=== PATIENT | male | born 1960 | race Caucasian/White ===

== ENCOUNTER 2023-12-16 08:00 | Outpatient (CLI) | payer OTHER ==
[~2023-12-16] VITALS: Ht 177.8 cm; Wt 86.2 kg
[2024-01-11 07:01] VITALS: PULSE 75; RESP 18; TEMP 98.2; O2SAT 98
[2024-01-11 08:27] VITALS: BP_SYST 121
== END 2023-12-16 15:30 | disposition home or self-care (01) ==
LOC: SLB 08:00 → EDSTATUS 01-11 07:30
PROVIDERS: ATTEND Colon & Rectal Surgery
DX: K42.0 Umbilical hernia with obstruction, without gangrene (principal)
CPT/HCPCS: 87081

== ENCOUNTER 2024-01-11 05:55 | Day surgery (SDC) | payer OTHER ==
[~2024-01-11] VITALS: Ht 177.8 cm; Wt 95.7 kg
[2024-01-11] MEDS ORDERED: CEFAZOLIN SOD 2 GM in D5W 50 ML IV ONE (07:00)
[2024-01-11] MEDS ORDERED: MIDAZOLAM HCL 2 MG/2 ML VIAL (VERSED) ONE (07:25)
[2024-01-11] MEDS ORDERED: NS IRRIG SOLN 1000 ML IR ONE (07:25)
[2024-01-11] MEDS ORDERED: LR 1,000 ML IV.SOLN IV ONE (07:25)
[2024-01-11] MEDS ORDERED: DESFLURANE 15 MIN GAS INH ONE (07:25)
[2024-01-11] MEDS ORDERED: ceFAZolin SODIUM 1 GM VIAL ONE (07:25)
[2024-01-11] MEDS ORDERED: METOCLOPRAMIDE HCL 10 MG/2 ML VIAL ONE (07:25)
[2024-01-11] MEDS ORDERED: fentaNYL CITRATE/PF 100 MCG/2 ML AMP ONE (07:25)
[2024-01-11] MEDS ORDERED: ONDANSETRON HCL 4 MG/2 ML VIAL ONE (07:25)
[2024-01-11] MEDS ORDERED: ROCURONIUM BROMIDE 10 MG/ML (ZEMURON) ONE (07:25)
[2024-01-11] MEDS ORDERED: LR 500 ML IV.SOLN IV ONE (07:25)
[2024-01-11] MEDS ORDERED: PROPOFOL 200MG/ 20ML VIAL (DIPRIVAN) IV ONE (07:25)
[2024-01-11] MEDS ORDERED: LIDOCAINE HCL/PF 1% 10 ML AMPUL INJ ONE (07:25)
[2024-01-11] MEDS ORDERED: ACETAMINOPHEN I.V. 1000 MG 100 ML IV ONE (07:54)
[2024-01-11] MEDS ORDERED: LR 1,000 ML IV SCH (08:00)
[2024-01-11] MEDS ORDERED: HYDROmorphone 1 MG/ML INJ. CARTRIDGE IVP PRN (08:00)
[2024-01-11] MEDS ORDERED: METOCLOPRAMIDE HCL 10 MG/2 ML VIAL IVP PRN (08:00)
[2024-01-11] MEDS ORDERED: hydrALAZINE HCL 20 MG/ML VIAL IVP PRN (08:00)
[2024-01-11] MEDS ORDERED: LABETALOL 100 MG/ 20ML VIAL IVP PRN (08:00)
[2024-01-11] MEDS ORDERED: MEPERIDINE HCL/PF 25 MG/ML DISP.SYRIN IVP PRN (08:00)
[2024-01-11] MEDS ORDERED: HYDROcodone/ACETAMIN 5-325 MG TAB (NORCO/ VICODIN) PO PRN ×2 (08:30)
[2024-01-11] MEDS ORDERED: D5/0.45 NS 1,000 ML IV SCH (08:30)
[2024-01-11] MEDS: HYDROmorphone 1 MG/ML INJ. CARTRIDGE IVP PRN (09:08)
[2024-01-11] MEDS ORDERED: HYDROmorphone 1 MG/ML INJ. CARTRIDGE ONE (09:09)
[2024-01-11 09:49] VITALS: O2SAT 98
[2024-01-11 14:15] VITALS: BP_SYST 127; PULSE 72; RESP 17
== END 2024-01-11 11:00 | disposition home or self-care (01) ==
LOC: SDS 05:55
PROVIDERS: ATTEND Colon & Rectal Surgery
DX: K42.0 Umbilical hernia with obstruction, without gangrene (principal); I10 Essential (primary) hypertension; E78.5 Hyperlipidemia, unspecified; E66.9 Obesity, unspecified; Z68.30 Body mass index [BMI] 30.0-30.9, adult; Z79.899 Other long term (current) drug therapy
CPT/HCPCS: 49594; J0690; J2765; J3465; J2405; J2704; J3010; J1170; J7060; J7120; C1781; J0131; J2001